=== PATIENT | female | born 1990 | race Caucasian/White ===

== ENCOUNTER 2018-10-31 05:56 | Day surgery (SDC) | payer OTHER ==
[~2018-10-31] VITALS: Ht 162.6 cm; Wt 63.7 kg
[~2018-10-31 05:56] MED LIST: CIPRO 500MG TA500 MG PO; COLACE 100100 MG/CAP PO; MOTRIN 800800 MG/TAB PO; NORCO 325 MG-51 TAB PO
[2018-10-31 06:40] VITALS: BP 108/63; PULSE 73; TEMP 97.7
[2018-10-31 09:25] VITALS: BP 113/62; PULSE 64; TEMP 97.6
[2018-10-31 09:36] VITALS: BP 117/62; PULSE 67
[2018-10-31 09:57] VITALS: BP 112/60; PULSE 65
[2018-10-31 10:15] VITALS: BP 107/55; PULSE 70
[2018-10-31 10:30] VITALS: BP 105/62; PULSE 71
--- NOTE | 2018-10-31 11:57 | NUR ---
PT RETURNED FROM PACU, VSS, PAIN RATED AT A '3' ON 0-10 SCALE. DENIES NAUSEA. WILL MONITOR PROGRESSION.
--- NOTE | 2018-10-31 12:14 | NUR ---
PT UP TO VOID, C/O OF 'ALITTLE BURNING'. TOLERATED AMBULATION WELL. VSS.WILL CONTINUE TO MONITOR.
--- NOTE | 2018-10-31 12:17 | NUR ---
IV DC'D, PT TOLERATED WELL. PT CONT TO C/O PAIN 3 OF 0-10 SCALE, WILL MONITOR.
--- NOTE | 2018-10-31 12:21 | NUR ---
PT WAS C/O 'BLADDER SPASMS' AND STATED THAT PAIN WAS AT A 3 BUT WAS BECOMING A 5 AND GOING UP, WILL CHECK FOR PRN MEDS AND CONT TO MONITOR
--- NOTE | 2018-10-31 12:36 | NUR ---
1100- C/O PAIN/ BLADDER SPASMS AND RATED IT AT A 5 ON 0-10 SCALE AND STATED THAT SHE WAS FEELING WORSE. PERCOCET ORDERED AND 5MG GIVEN PO. PT STATED AT 1120 THAT HER PAIN WAS BETTER AND WAS DECREASING, BLADDER SPASMS WERE DECREASING. PT WAS A/OX3 AND DENIES NAUSEA. PT STATD THAT SHE NEEDED TO GET HOME HER QUALITY ANALYST/TECHNICAL WRITER WAS NEEDING TO LEAVE. INSTRUCTED PT TO CALL HER MEDICAL PROVIDER AND PH# PROVIDED IF NEEDING ANYTHING FURTHER OR IF HAD QUESTIONS. MOTHER AT BEDSIDE AND STATED SHE WAS STAYING FOR THE WEEKEND AND WOULD BE FILLING HER PAIN MEDICATION AND CARING FOR HER.
== END 2018-10-31 11:20 | disposition home or self-care (01) ==
LOC: SDCO 05:56
DX: N20.1 Calculus of ureter (principal); Z87.440 Personal history of urinary (tract) infections
CPT/HCPCS: C1769; J0690; J1100; J1885; J2405; J2704; J3010; J7120